=== PATIENT | male | born 1985 | race Two or more races ===

== ENCOUNTER 2021-01-21 10:54 | Emergency (ER) | payer MEDICAID ==
[~2021-01-21] VITALS: Ht 177.8 cm; Wt 122.3 kg
[~2021-01-21 10:54] MED LIST: CYCL-1 PO; IBUP-1986 PO; NO HOME MEDS; PANT40TA39 PO; TRAM50TA2 PO
[2021-01-21] MEDS ORDERED: proCHLORperazine 10 MG/2 ml inj IV ONE (16:25)
[2021-01-21] MEDS ORDERED: LORazepam 2 mg/ml vial IV ONE (16:25)
[2021-01-21] MEDS ORDERED: ondansetron/PF 4mg/2ml inj IV ONE (16:25)
[2021-01-21] MEDS ORDERED: famotidine/PF 10 mg/ml inj IV ONE (16:25)
[2021-01-21] MEDS ORDERED: pantoprazole 40 MG vial IV ONE (16:25)
[2021-01-21] MEDS ORDERED: normal saline 1000ml 1,000 ML IV ONE (16:25)
[2021-01-21 16:35] LABS: BASOPHILS # (AUTO) 0.1 X10'3 (0-0.2); BASOPHILS % (AUTO) 0.9 % (0-1); EOSINOPHILS % (AUTO) 0.1 % (0-6); HEMATOCRIT 44.7 % (42.0-52.0); HEMOGLOBIN 15.4 g/dl (14.0-17.9); LYMPHOCYTES # (AUTO) 3.4 X10'3 (1.1-4.8); LYMPHOCYTES % (AUTO) 23.9 % (21-51); MEAN CORPUSCULAR HEMOGLOBIN 31.6 PG (27.0-31.0); MEAN CORPUSCULAR HGB CONC 34.4 g/dL (33.0-36.5); MEAN CORPUSCULAR VOLUME 91.7 FL (78-98); MEAN PLATELET VOLUME 7.4 FL (7.4-10.4); MONOCYTES # (AUTO) 1.1 X10'3 (0-0.9); MONOCYTES % (AUTO) 8.2 % (2-12); NEUTROPHILS # (AUTO) 9.4 X10'3 (1.8-7.7); NEUTROPHILS % (AUTO) 66.9 % (42-75); PLATELET COUNT 353 X10'3 (140-440); RED BLOOD COUNT 4.87 X10'6 (4.70-6.10); RED CELL DISTRIBUTION WIDTH 12.6 % (11.5-14.5); WHITE BLOOD COUNT 14.1 X10'3 (4.5-11.0)
[2021-01-21 16:59] LABS: ALANINE AMINOTRANSFERASE 36 U/L (12-78); ALBUMIN 4.5 G/DL (3.4-5.0); ALBUMIN/GLOBULIN RATIO 1.2 (1.1-1.5); ALKALINE PHOSPHATASE 44 IU/L (46-116); ANION GAP 11 (8-16); ASPARTATE AMINO TRANSFERASE 24 U/L (10-37); BLOOD UREA NITROGEN 11 MG/DL (7-18); BUN/CREATININE RATIO 10.1 (5.4-32.0); CALCIUM 8.9 MG/DL (8.5-10.1); CHLORIDE 103 MMOL/L (99-107); CREATININE 1.09 MG/DL (0.60-1.10); GLUCOSE 105 MG/DL (70-104); LIPASE 89 U/L (73-393); POTASSIUM 3.8 MMOL/L (3.5-5.1); SODIUM 140 MMOL/L (135-145); TOTAL PROTEIN 8.3 G/DL (6.4-8.2); eGFR 76 ML/MIN
[2021-01-21] MEDS ORDERED: PANT-47 PO (17:41)
[2021-01-21] MEDS ORDERED: ONDA4TAB6 PO (17:41)
[2021-01-21 17:49] VITALS: BP 144/99
== END 2021-01-21 17:45 | disposition home or self-care (01) ==
LOC: ER 10:54
DX: R11.2 Nausea with vomiting, unspecified (principal); F12.90 Cannabis use, unspecified, uncomplicated; Z72.89 Other problems related to lifestyle; Z90.49 Acquired absence of other specified parts of digestive tract; Z79.899 Other long term (current) drug therapy
CPT/HCPCS: 36415; 80053; 83690; 85025; 96374; 96375; 99284; C9113; J0780; J2060; J2405; J3490; J7030

== ENCOUNTER 2022-05-11 14:28 | Emergency (ER) | payer MEDICAID ==
[~2022-05-11] VITALS: Ht 177.8 cm; Wt 125.0 kg
[~2022-05-11 14:28] MED LIST changes: +ONDA4TAB6 PO; +PANT-47 PO
[2022-05-11] MEDS ORDERED: LIDOcaine Viscous 15ml cup MM ONE (16:20)
[2022-05-11] MEDS ORDERED: PENI500T2 PO (17:16)
[2022-05-11] MEDS ORDERED: penicillin V potassium 500mg tablet PO ONE (17:20)
[2022-05-11 17:52] VITALS: BP 138/87
== END 2022-05-11 17:55 | disposition home or self-care (01) ==
LOC: ER 14:29
DX: J02.0 Streptococcal pharyngitis (principal); F12.10 Cannabis abuse, uncomplicated; Z90.49 Acquired absence of other specified parts of digestive tract; Z79.899 Other long term (current) drug therapy; Z79.1 Long term (current) use of non-steroidal anti-inflammatories (NSAID)
CPT/HCPCS: 87880; 99283